=== PATIENT | female | born 1995 | race Caucasian/White ===

== ENCOUNTER 2017-12-11 17:00 | Emergency (ER) | payer SELFPAY ==
[~2017-12-11] VITALS: Ht 157.5 cm; Wt 74.8 kg
[2017-12-11] MEDS ORDERED: CLINDAMYCIN HCL 150 MG CAPSULE PO ONE (17:30)
[2017-12-11] MEDS ORDERED: HYDROCODONE/APAP 5-325MG TABLET PO ONE (17:30)
[2017-12-11] MEDS ORDERED: HYDROCODONE/APAP 5-325MG TABLET ONE (17:33)
[2017-12-11] MEDS ORDERED: CLINDAMYCIN HCL 300 MG CAPSULE ONE (17:33)
--- NOTE | 2017-12-11 17:55 | NUR ---
Patient discharged to home in stable conditon. Written and verbal after care instructions given. Patient verbalizes understanding of instructions. Stressed follow up.
== END 2017-12-11 17:58 | disposition home or self-care (01) ==
LOC: ER 17:03
DX: L08.9 Local infection of the skin and subcutaneous tissue, unspecified (principal); F17.210 Nicotine dependence, cigarettes, uncomplicated; Z88.0 Allergy status to penicillin
CPT/HCPCS: 73660; 99284; A4663